=== PATIENT | female | born 1990 | race Caucasian/White ===

== ENCOUNTER 2016-05-29 22:04 | Emergency (ER) | payer OTHER ==
[~2016-05-29] VITALS: Ht 157.5 cm; Wt 63.6 kg
[~2016-05-29 22:04] MED LIST: IRON325 M1 PO; PRENATAL COMPL1 EACH PO
[2016-05-29 22:30] LABS: BILIRUBIN NEGATIVE; BLOOD NEGATIVE; COLOR YELLOW ((YELLOW)); GLUCOSE (STRIP) NEGATIVE; KETONES NEGATIVE; LEUKOCYTES NEGATIVE; NITRITE NEGATIVE; PROTEIN (STRIP) NEGATIVE; UROBILINOGEN 0.2 MG/DL (0.2-1.0)
[2016-05-29 22:31] LABS: ADD MIUA? NO; UCUL ADDED? NO
[2016-05-29 22:33] LABS: MCHC 32.1 G/DL (30.0-36.0); MCV 84.4 FL (83-99); MEAN PLAT.VOLUME 9.7 uM^3 (9.5-12.4); PLATELET COUNT 92 K/uL (156-360); RBC DIS.WIDTH-CV 14.7 % (11.8-14.6); RBC DIS.WIDTH-SD 44.4 % (39-53); RED BLOOD COUNT 4.03 M/uL (3.80-5.20); WHITE BLOOD COUNT 6.4 K/uL (4.1-10.2)
[2016-05-29 22:40] LABS: CHLORIDE 108 mEq/L (99-109); POTASSIUM 3.7 mEq/L (3.7-5.4); SODIUM 140 mEq/L (136-147)
[2016-05-29 22:43] LABS: GLUCOSE 97 mg/dL (70-99)
[2016-05-29 22:44] LABS: ANION GAP 8 MEQ/L (2-14); TOTAL BILIRUBIN 0.3 mg/dL (0.0-1.0)
[2016-05-29 22:46] LABS: ALKALINE PHOSPHATASE 86 IU/L (3-129); GFR ESTIMATE (CALCULATED) > 59 mL/min/
[2016-05-29 22:47] LABS: UREA NITROGEN (BUN) 12 mg/dL (9-23)
[2016-05-29 22:50] LABS: LIPASE 32 U/L (1.0-51.0)
[2016-05-29 22:55] LABS: QUANTITATIVE HCG < 4.0 MIU/ML
[2016-05-30] MEDS ORDERED: ZOFRAN4 MG PO (00:32)
[2016-05-30] MEDS ORDERED: NORCO 5/3251 TABLET PO (00:32)
[2016-05-30 00:36] VITALS: BP 123/60
== END 2016-05-30 00:44 | disposition home or self-care (01) ==
LOC: EME 22:04
DX: R10.11 Right upper quadrant pain (principal); D64.9 Anemia, unspecified; D69.6 Thrombocytopenia, unspecified
CPT/HCPCS: 76705; 80053; 81003; 83690; 84702; 85027; 99281; 99283